=== PATIENT | female | born 1935 | race Caucasian/White ===

== ENCOUNTER → 2018-08-17 | Outpatient (CLI) | payer MEDICARE ==
--- NOTE | 2018-08-17 18:44 | US ---
EXAMINATION TYPE: US abdomen complete DATE OF EXAM: 08/17/2018 COMPARISON: NONE CLINICAL HISTORY: M54.5 Acute Back Pain. Pain RUQ and radiating to the back. EXAM MEASUREMENTS: Liver Length: 13.2 cm Gallbladder Wall: 0.3 cm CBD: 0.6 cm Spleen: 7.8 cm Right Kidney: 8.7 x 3.1 x 3.1 cm Left Kidney: 9.3 x 3.9 x 3.6 cm Pancreas: Obscured by bowel gas Liver: Increased attenuation Gallbladder: Multiple mobile echogenic foci are seen within the gallbladder lumen, consistent with c holelithiasis occupying approximately 85% of the lumen of the gallbladder. Evidence for sonographic Savage's sign: No CBD: wnl Spleen: wnl Right Kidney: Anechoic area renal pelvis 1.5 x 1.0 x 1.6cm. Left Kidney: wnl Upper IVC: wnl Abd Aorta: wnl IMPRESSION: CHOLELITHIASIS WITHOUT CHOLECYSTITIS.
== END | disposition home or self-care (01) ==
LOC: RADUSMAIN 17:40
PROVIDERS: ATTEND Physician Assistant
DX: K80.20 Calculus of gallbladder without cholecystitis without obstruction (principal)
CPT/HCPCS: 76700